=== PATIENT | male | born 1945 | race Caucasian/White ===

== ENCOUNTER 2023-03-31 09:10 | Inpatient (IN) | payer OTHER, MEDICARE ==
[~2023-03-31] VITALS: Ht 172.7 cm; Wt 75.0 kg
[2023-03-31] MEDS ORDERED: ondansetron/PF 4mg/2ml inj IV ONE (11:45)
[2023-03-31] MEDS ORDERED: normal saline 1000ML IV soln IVB ONE ×2 (11:45→14:25)
[2023-03-31 12:01] LABS: BILIRUBIN,URINE NEGATIVE (Neg); CLARITY,URINE CLEAR (Clear); COLOR,URINE YELLOW (Yellow); GLUCOSE, URINE >=1000 mg/dl (Neg); KETONES,URINE >=80 mg/dl (Neg); LEUKOCYTE ESTERASE ,URINE NEGATIVE (Neg); NITRITES, URINE NEGATIVE (Neg); OCCULT BLOOD,URINE NEGATIVE (Neg); PH,URINE 5.5 (4.8-8.0); PROTEIN,URINE NEGATIVE (Neg); UROBILINOGEN,URINE 0.2 E.U/dL (0.2-1.0)
[2023-03-31 12:14] LABS: UA COLLECTION TYPE CLN CATCH MIDSTREAM
[2023-03-31 12:15] LABS: BACTERIA,URINE FEW /HPF (Neg); MUCUS STRANDS NONE SEEN /LPF (Neg); RBC,URINE 0-2 /HPF (0-2); SQUAMOUS EPITHELIAL CELL,UR FEW /LPF (FEW); WBC,URINE 0-4 /HPF (0-4)
[2023-03-31 13:11] LABS: BASOPHILS % (AUTO) 0.1 % (0-1); EOSINOPHILS % (AUTO) 0 % (0-6); HEMATOCRIT 42.9 % (42.0-52.0); HEMOGLOBIN 14.4 g/dl (14.0-17.9); LYMPHOCYTES % (AUTO) 5.8 % (21-51); MEAN CORPUSCULAR HEMOGLOBIN 31.6 PG (27.0-31.0); MEAN CORPUSCULAR HGB CONC 33.6 g/dL (33.0-36.5); MEAN CORPUSCULAR VOLUME 93.9 FL (78-98); MEAN PLATELET VOLUME 8.8 FL (7.4-10.4); MONOCYTES % (AUTO) 5.5 % (2-12); NEUTROPHILS # (AUTO) 15.6 X10'3 (1.8-7.7); NEUTROPHILS % (AUTO) 88.6 % (42-75); PLATELET COUNT 232 X10'3 (140-440); RED BLOOD COUNT 4.57 X10'6 (4.70-6.10); RED CELL DISTRIBUTION WIDTH 13.3 % (11.5-14.5); WHITE BLOOD COUNT 17.6 X10'3 (4.5-11.0)
[2023-03-31 13:39] LABS: ALANINE AMINOTRANSFERASE 44 U/L (12-78); ALBUMIN 4.5 G/DL (3.4-5.0); ALBUMIN/GLOBULIN RATIO 1.3 (1.1-1.5); ALKALINE PHOSPHATASE 110 IU/L (46-116); ANION GAP 19 (8-16); ASPARTATE AMINO TRANSFERASE 44 U/L (10-37); BILIRUBIN,TOTAL 1.2 MG/DL (0.1-1.0); BLOOD UREA NITROGEN 28 MG/DL (7-18); BUN/CREATININE RATIO 18.7 (10.0-20.0); CALCIUM 10.5 MG/DL (8.5-10.1); CHLORIDE 99 MMOL/L (99-107); GLUCOSE 146 MG/DL (70-104); POTASSIUM 4.2 MMOL/L (3.5-5.1); SODIUM 139 MMOL/L (135-145); TOTAL CARBON DIOXIDE 20.9 MMOL/L (24-32); TOTAL PROTEIN 8.1 G/DL (6.4-8.2); eCRCL 40 ML/MIN; eGFR 45 ML/MIN
[2023-03-31 13:45] LABS: C-REACTIVE PROTEIN 0.08 MG/DL (0.0-0.5); MAGNESIUM 2.1 MG/DL (1.5-2.4)
[2023-03-31] MEDS ORDERED: METF-900 PO (15:08)
[2023-03-31] MEDS ORDERED: SEMA1PEN3 SQ (15:08)
[2023-03-31] MEDS ORDERED: ATOR80TA PO (15:08)
[2023-03-31] MEDS ORDERED: LOSA25TA41 PO (15:08)
[2023-03-31] MEDS ORDERED: METO50TA17 PO (15:08)
[2023-03-31] MEDS ORDERED: CLOP-32 PO (15:08)
[2023-03-31] MEDS ORDERED: acetaminophen 325mg tablet PO PRN (16:05)
[2023-03-31] MEDS ORDERED: magnesium 4gm in 100ml NS 100 ML IV PRN (16:05)
[2023-03-31] MEDS ORDERED: HYDROcodone/acetaminophen 5mg/325mg tablet PO PRN (16:05)
[2023-03-31] MEDS ORDERED: potassium Cl 40MEQ/1/2NS 520ml 520 ML IV PRN (16:05)
[2023-03-31] MEDS ORDERED: HYDROcodone/acetaminophen 10/325mg tab PO PRN (16:05)
[2023-03-31] MEDS ORDERED: potassium Cl 20 mEq SR tablet PO PRN ×2 (16:05)
[2023-03-31] MEDS ORDERED: morphine 2 MG/ML inj. syringe IV PRN (16:05)
[2023-03-31] MEDS ORDERED: CefTRIAXone 2gm/D5W 50ml BAG 50 ML IV ONE (16:05)
[2023-03-31] MEDS ORDERED: magnesium Cl slow-release 64mg tablet PO PRN (16:05)
[2023-03-31] MEDS ORDERED: magnesium 2GM in 50ml NS 50 ML IV PRN (16:05)
[2023-03-31] MEDS ORDERED: DEXTROSE 15 GM of carb/4 tabs (each vial/BOTTLE has 4 tablets) PO PRN ×2 (16:25)
[2023-03-31] MEDS ORDERED: glucagon, human recombinant 1mg kit SUBCUT PRN (16:25)
[2023-03-31] MEDS ORDERED: insulin Lispro (HumaLOG) vial - multi-dose SQ SCH (16:25)
[2023-03-31] MEDS ORDERED: dextrose 50%-water 50ml dispensing syringe IV PRN ×2 (16:25)
[2023-03-31] MEDS ORDERED: MESSAGE TO PHARMACY PO ONE (16:25)
[2023-03-31 16:59] LABS: BASOPHILS % (AUTO) 0.1 % (0-1); EOSINOPHILS % (AUTO) 0 % (0-6); HEMATOCRIT 42.2 % (42.0-52.0); HEMOGLOBIN 14.1 g/dl (14.0-17.9); LYMPHOCYTES # (AUTO) 1.2 X10'3 (1.1-4.8); LYMPHOCYTES % (AUTO) 6.8 % (21-51); MEAN CORPUSCULAR HEMOGLOBIN 31.6 PG (27.0-31.0); MEAN CORPUSCULAR HGB CONC 33.4 g/dL (33.0-36.5); MEAN CORPUSCULAR VOLUME 94.6 FL (78-98); MEAN PLATELET VOLUME 8.6 FL (7.4-10.4); MONOCYTES # (AUTO) 0.7 X10'3 (0-0.9); MONOCYTES % (AUTO) 3.8 % (2-12); NEUTROPHILS # (AUTO) 15.9 X10'3 (1.8-7.7); NEUTROPHILS % (AUTO) 89.3 % (42-75); PLATELET COUNT 226 X10'3 (140-440); RED BLOOD COUNT 4.46 X10'6 (4.70-6.10); RED CELL DISTRIBUTION WIDTH 14.1 % (11.5-14.5); WHITE BLOOD COUNT 17.7 X10'3 (4.5-11.0)
[2023-03-31] MEDS: ondansetron/PF 4mg/2ml inj IV PRN (17:58)
[2023-03-31] MEDS: metoprolol tartrate 50mg tablet PO SCH (19:11)
[2023-03-31] MEDS: heparin, porcine 5000 units/ml vial SQ SCH (19:14)
[2023-03-31] MEDS: normal saline 1000ml 1,000 ML IV SCH (19:17)
[2023-03-31 19:47] LABS: HEMOGLOBIN A1C 6.3 % (4.5-6.2)
[2023-03-31] MEDS: metroNIDAZOLE-Flagyl 500mg/NS 100 ML IV SCH (20:28)
[2023-03-31] MEDS ORDERED: insulin glargine (Lantus) pen - multi-dose SQ SCH (21:00)
--- NOTE | 2023-03-31 21:00 | NUR ---
Patient in room ORTHO 4009. I have received report from ALHAJI Davila and had the opportunity to ask questions and assume patient care.
[2023-03-31 22:00] VITALS: RESP 17; O2SAT 96
[2023-03-31] MEDS: metoclopramide 5 mg/ml inj IV PRN (23:27)
[2023-03-31 23:45] VITALS: BP 150/68; PULSE 109; RESP 16; TEMP 98.9; O2SAT 100
[2023-04-01] MEDS: normal saline 1000ml 1,000 ML IV SCH ×2 (03:35→06:58)
--- NOTE | 2023-04-01 06:39 | NUR ---
Problems reprioritized. Patient report given, questions answered & plan of care reviewed with ALHAJI Paredes.
--- NOTE | 2023-04-01 06:42 | NUR ---
Patient in room ORTHO 4009. I have received report from SHANTI MANE and had the opportunity to ask questions and assume patient care.
[2023-04-01 06:50] VITALS: BP 139/55; PULSE 90; RESP 16; TEMP 97.8; O2SAT 100
[2023-04-01] MEDS: ondansetron/PF 4mg/2ml inj IV PRN ×3 (07:05→20:14)
[2023-04-01] MEDS: heparin, porcine 5000 units/ml vial SQ SCH ×2 (07:34→20:11)
[2023-04-01] MEDS: clopidogrel 75mg tablet PO SCH (07:35)
[2023-04-01] MEDS: losartan 25mg tablet PO SCH (07:35)
[2023-04-01] MEDS: metoprolol tartrate 50mg tablet PO SCH ×2 (07:36→20:11)
[2023-04-01] MEDS: metroNIDAZOLE-Flagyl 500mg/NS 100 ML IV SCH ×2 (07:36→20:10)
[2023-04-01] MEDS: atorvastatin 20mg tablet PO SCH (07:36)
[2023-04-01 08:34] LABS: BASOPHILS % (AUTO) 0.1 % (0-1); EOSINOPHILS % (AUTO) 0 % (0-6); HEMATOCRIT 36.5 % (42.0-52.0); HEMOGLOBIN 12.2 g/dl (14.0-17.9); LYMPHOCYTES # (AUTO) 0.9 X10'3 (1.1-4.8); LYMPHOCYTES % (AUTO) 8.3 % (21-51); MEAN CORPUSCULAR HGB CONC 33.5 g/dL (33.0-36.5); MEAN CORPUSCULAR VOLUME 95.5 FL (78-98); MEAN PLATELET VOLUME 8.3 FL (7.4-10.4); MONOCYTES # (AUTO) 0.5 X10'3 (0-0.9); MONOCYTES % (AUTO) 4.8 % (2-12); NEUTROPHILS # (AUTO) 9.6 X10'3 (1.8-7.7); NEUTROPHILS % (AUTO) 86.8 % (42-75); PLATELET COUNT 196 X10'3 (140-440); RED BLOOD COUNT 3.82 X10'6 (4.70-6.10); RED CELL DISTRIBUTION WIDTH 14.1 % (11.5-14.5)
[2023-04-01 09:05] LABS: ALANINE AMINOTRANSFERASE 31 U/L (12-78); ALBUMIN 3.6 G/DL (3.4-5.0); ALBUMIN/GLOBULIN RATIO 1.1 (1.1-1.5); ALKALINE PHOSPHATASE 87 IU/L (46-116); ANION GAP 24 (8-16); ASPARTATE AMINO TRANSFERASE 31 U/L (10-37); BILIRUBIN,TOTAL 0.7 MG/DL (0.1-1.0); BLOOD UREA NITROGEN 24 MG/DL (7-18); BUN/CREATININE RATIO 15.7 (10.0-20.0); CALCIUM 8.9 MG/DL (8.5-10.1); CHLORIDE 106 MMOL/L (99-107); CREATININE 1.53 MG/DL (0.60-1.10); GLUCOSE 166 MG/DL (70-104); POTASSIUM 3.8 MMOL/L (3.5-5.1); SODIUM 144 MMOL/L (135-145); TOTAL PROTEIN 6.8 G/DL (6.4-8.2); eCRCL 39 ML/MIN; eGFR 44 ML/MIN
[2023-04-01 09:09] LABS: TOTAL CARBON DIOXIDE 14.1 MMOL/L (24-32)
--- NOTE | 2023-04-01 09:22 | NUR ---
PAGER ID: [phone] MESSAGE: Carlos Manuel Manzo# [id number]- Critical called - Co2 14.1 (20.9) Thank you. Tonja MANE for Andrew MANE
[2023-04-01 10:00] VITALS: BP 144/60; PULSE 89; RESP 16; TEMP 97.3; O2SAT 100
--- NOTE | 2023-04-01 12:10 | NUR ---
Malnutrition consult: Per RN malnutrition screen pt reports 24-33 pound wt loss without trying and decreased in PO intake/appetite. Pt seen at bedside this morning states he's been losing a lot of weight related to Ozempic medication for diabetes. Pt states weight loss is intentional and desirable since he is able to eat "whatever he wants" while taking medication. Pt appeared physically well nourished with no signs of muscle or fat wasting at this time. Additionally pt does not have edema but presents with mild weakness which is anticipated given age. Pt does not meet a minimum of two malnutrition criteria at this time. Will continue to monitor. Addendum: 04/01/23 at [address] Amended: Links added.
[2023-04-01 12:24] VITALS: RESP 18; O2SAT 100
[2023-04-01] MEDS: sodium bicarbonate (8.4%) inj. 50 MEQ in dextrose 5%-water 1,000 ML IV SCH (13:02)
[2023-04-01] MEDS: morphine 2 MG/ML inj. syringe IV PRN ×2 (15:06→22:16)
[2023-04-01] MEDS: metoclopramide 5 mg/ml inj IV PRN (17:59)
[2023-04-01 18:00] VITALS: BP 144/69; PULSE 86; RESP 16; TEMP 98.5; O2SAT 100
--- NOTE | 2023-04-01 18:05 | NUR ---
PAGER ID: [phone] MESSAGE: ALHAJI WALKER, ORTHO, [id number]. RE: [id number]. [facility] IN [place] STATED PT. INFO CAN ONLY BE BY TELEPHONE AND EMAIL. TO GET INFO WE NEED MD TO PASS OUR MEDICAL RECORDS TO GET THERE MEDICAL RECORDS.
--- NOTE | 2023-04-01 18:34 | NUR ---
Problems reprioritized. Patient report given TO SHANTI MANE, questions answered & plan of care reviewed with .
--- NOTE | 2023-04-01 18:38 | NUR ---
Patient in room ORTHO 4009. I have received report from ALHAJI Paredes and had the opportunity to ask questions and assume patient care.
[2023-04-01 20:00] VITALS: RESP 14; O2SAT 99
[2023-04-01 22:00] VITALS: BP 139/53; PULSE 97; RESP 14; TEMP 99; O2SAT 99
[2023-04-02] MEDS: metoclopramide 5 mg/ml inj IV PRN ×2 (00:18→13:13)
[2023-04-02] MEDS: sodium bicarbonate (8.4%) inj. 50 MEQ in dextrose 5%-water 1,000 ML IV SCH ×2 (00:18→08:05)
[2023-04-02] MEDS: ondansetron/PF 4mg/2ml inj IV PRN ×2 (04:31→18:13)
[2023-04-02] MEDS: morphine 2 MG/ML inj. syringe IV PRN ×3 (04:31→17:07)
--- NOTE | 2023-04-02 06:06 | NUR ---
Problems reprioritized. Patient report given, questions answered & plan of care reviewed with ALHAJI Paredes.
--- NOTE | 2023-04-02 06:17 | NUR ---
Patient in room ORTHO 4009. I have received report from SHANTI MANE and had the opportunity to ask questions and assume patient care.
[2023-04-02 06:33] VITALS: BP 110/59; PULSE 64; RESP 16; TEMP 98.7; O2SAT 99
[2023-04-02] MEDS: heparin, porcine 5000 units/ml vial SQ SCH ×2 (07:13→20:01)
[2023-04-02] MEDS: clopidogrel 75mg tablet PO SCH (07:13)
[2023-04-02] MEDS: atorvastatin 20mg tablet PO SCH (07:13)
[2023-04-02] MEDS: losartan 25mg tablet PO SCH (07:14)
[2023-04-02] MEDS: metoprolol tartrate 50mg tablet PO SCH ×2 (07:14→20:03)
[2023-04-02] MEDS: metroNIDAZOLE-Flagyl 500mg/NS 100 ML IV SCH ×2 (07:15→20:01)
[2023-04-02 07:44] LABS: BASOPHILS # (AUTO) 0.1 X10'3 (0-0.2); BASOPHILS % (AUTO) 0.3 % (0-1); EOSINOPHILS % (AUTO) 0.1 % (0-6); HEMATOCRIT 38.5 % (42.0-52.0); HEMOGLOBIN 13.1 g/dl (14.0-17.9); LYMPHOCYTES # (AUTO) 1.4 X10'3 (1.1-4.8); LYMPHOCYTES % (AUTO) 7.4 % (21-51); MEAN CORPUSCULAR HEMOGLOBIN 31.4 PG (27.0-31.0); MEAN CORPUSCULAR HGB CONC 34.1 g/dL (33.0-36.5); MEAN PLATELET VOLUME 8.2 FL (7.4-10.4); MONOCYTES # (AUTO) 1.6 X10'3 (0-0.9); MONOCYTES % (AUTO) 8.7 % (2-12); NEUTROPHILS # (AUTO) 15.7 X10'3 (1.8-7.7); NEUTROPHILS % (AUTO) 83.5 % (42-75); PLATELET COUNT 213 X10'3 (140-440); RED BLOOD COUNT 4.18 X10'6 (4.70-6.10); RED CELL DISTRIBUTION WIDTH 13.7 % (11.5-14.5); WHITE BLOOD COUNT 18.8 X10'3 (4.5-11.0)
[2023-04-02 08:09] LABS: GLUCOSE 271 MG/DL (70-104)
[2023-04-02 08:10] LABS: ALANINE AMINOTRANSFERASE 28 U/L (12-78); ALBUMIN 3.3 G/DL (3.4-5.0); ALBUMIN/GLOBULIN RATIO 1.1 (1.1-1.5); ALKALINE PHOSPHATASE 84 IU/L (46-116); ANION GAP 16 (8-16); ASPARTATE AMINO TRANSFERASE 29 U/L (10-37); BILIRUBIN,TOTAL 0.8 MG/DL (0.1-1.0); BLOOD UREA NITROGEN 24 MG/DL (7-18); BUN/CREATININE RATIO 16.4 (10.0-20.0); CALCIUM 8.6 MG/DL (8.5-10.1); CHLORIDE 104 MMOL/L (99-107); CREATININE 1.46 MG/DL (0.60-1.10); SODIUM 137 MMOL/L (135-145); TOTAL CARBON DIOXIDE 17.4 MMOL/L (24-32); TOTAL PROTEIN 6.4 G/DL (6.4-8.2); eCRCL 41 ML/MIN; eGFR 47 ML/MIN
[2023-04-02 08:15] LABS: POTASSIUM 2.8 MMOL/L (3.5-5.1)
--- NOTE | 2023-04-02 08:17 | NUR ---
PAGER ID: [phone] MESSAGE: ALHAJI WALKER, ORTHO, [id number]. RE: [id number]. CRITICAL LAB. K+ 2.8
[2023-04-02] MEDS ORDERED: Potassium Cl inj 20 MEQ in normal saline 1000ml 990 ML IV SCH (08:25)
[2023-04-02 09:24] LABS: C-REACTIVE PROTEIN 1.69 MG/DL (0.0-0.5)
[2023-04-02 09:27] LABS: LIPASE 60 U/L (16-77)
[2023-04-02 09:46] VITALS: RESP 16; O2SAT 99
[2023-04-02 10:00] VITALS: BP 123/55; PULSE 67; RESP 16; TEMP 98.7; O2SAT 98
--- NOTE | 2023-04-02 10:22 | NUR ---
JACINTA PICC LINE NURSE WILL PUT IN IV PLACEMENT, PT. MEDICATION POTASSIUM AND ANTIBIOTIC WILL BE ADMINISTERED ONCE IV PLACEMENT IS DONE.
[2023-04-02] MEDS: ciprofloxacin lact 400MG/200ML 200 ML IV SCH ×2 (10:45→21:05)
[2023-04-02] MEDS ORDERED: iohexol 300mg/ml 100ml inj. ONE (12:20)
[2023-04-02] MEDS ORDERED: pantoprazole 40mg IV 80 MG in normal saline 100ml IV soln 100 ML IV ONE (13:40)
[2023-04-02 14:46] LABS: BASOPHILS % (AUTO) 0 % (0-1); EOSINOPHILS % (AUTO) 0 % (0-6); LYMPHOCYTES # (AUTO) 0.8 X10'3 (1.1-4.8); LYMPHOCYTES % (AUTO) 4.9 % (21-51); MEAN CORPUSCULAR HEMOGLOBIN 31.5 PG (27.0-31.0); MEAN CORPUSCULAR HGB CONC 34.1 g/dL (33.0-36.5); MEAN CORPUSCULAR VOLUME 92.3 FL (78-98); MEAN PLATELET VOLUME 7.9 FL (7.4-10.4); MONOCYTES # (AUTO) 1.3 X10'3 (0-0.9); MONOCYTES % (AUTO) 8.1 % (2-12); NEUTROPHILS # (AUTO) 13.6 X10'3 (1.8-7.7); PLATELET COUNT 175 X10'3 (140-440); RED CELL DISTRIBUTION WIDTH 13.5 % (11.5-14.5); WHITE BLOOD COUNT 15.7 X10'3 (4.5-11.0)
--- NOTE | 2023-04-02 14:56 | NUR ---
PAGER ID: [phone] MESSAGE: ALHAJI WALKER, ORTHO, 0331. RE: [id number]. PT. CRITICAL LAB K+ 8.0. I STOPPED THE POTASSIUM IV. FYI
[2023-04-02] MEDS ORDERED: insulin regular, human 10 units/0.1 ml syringe SQ ONE (15:05)
[2023-04-02] MEDS ORDERED: albuterol 2.5 MG/3 ML nebule NEB ONE (15:05)
[2023-04-02] MEDS ORDERED: dextrose 50%-water 50ml dispensing syringe IV ONE (15:05)
[2023-04-02] MEDS ORDERED: calcium gluconate inj. 1 GM in normal saline 100ml IV soln 100 ML IV ONE (15:05)
[2023-04-02] MEDS ORDERED: calcium gluconate inj. 1 GM in NS 100ml IV soln (110 ML) IV ONE (15:10)
[2023-04-02] MEDS ORDERED: calcium gluconate inj. 1 GM in normal saline 50ml IV soln 40 ML IV ONE (15:40)
[2023-04-02 18:00] VITALS: BP 141/66; PULSE 71; RESP 18; TEMP 98.2; O2SAT 99
--- NOTE | 2023-04-02 18:17 | NUR ---
PAGER ID: [phone] MESSAGE: ALHAJI WALKER, ORTHO, 7467. RE: [id number]. PT. IS REQUESTING TEMAZEPAM FOR SLEEP.
--- NOTE | 2023-04-02 18:44 | NUR ---
Problems reprioritized. Patient report given to september rn, questions answered & plan of care reviewed with .
[2023-04-02] MEDS ORDERED: temazepam 15mg capsule PO PRN (20:50)
[2023-04-02 22:00] VITALS: BP 129/67; PULSE 77; RESP 16; TEMP 98.8; O2SAT 99
[2023-04-03] MEDS: morphine 2 MG/ML inj. syringe IV PRN (00:09)
[2023-04-03 06:00] VITALS: BP 149/64; PULSE 78; RESP 16; TEMP 98.3; O2SAT 99
[2023-04-03 06:14] LABS: BASOPHILS % (AUTO) 0.2 % (0-1); EOSINOPHILS % (AUTO) 0 % (0-6); HEMATOCRIT 39.3 % (42.0-52.0); LYMPHOCYTES % (AUTO) 6.8 % (21-51); MEAN CORPUSCULAR HEMOGLOBIN 31.8 PG (27.0-31.0); MEAN CORPUSCULAR HGB CONC 33.2 g/dL (33.0-36.5); MEAN CORPUSCULAR VOLUME 95.7 FL (78-98); MEAN PLATELET VOLUME 8.1 FL (7.4-10.4); MONOCYTES # (AUTO) 1.5 X10'3 (0-0.9); MONOCYTES % (AUTO) 10.1 % (2-12); NEUTROPHILS # (AUTO) 12.4 X10'3 (1.8-7.7); NEUTROPHILS % (AUTO) 82.9 % (42-75); PLATELET COUNT 146 X10'3 (140-440); RED BLOOD COUNT 4.11 X10'6 (4.70-6.10)
[2023-04-03 06:34] LABS: ALANINE AMINOTRANSFERASE 27 U/L (12-78); ALBUMIN 2.8 G/DL (3.4-5.0); ALKALINE PHOSPHATASE 79 IU/L (46-116); ANION GAP 11 (8-16); ASPARTATE AMINO TRANSFERASE 24 U/L (10-37); BILIRUBIN,TOTAL 0.7 MG/DL (0.1-1.0); BLOOD UREA NITROGEN 17 MG/DL (7-18); BUN/CREATININE RATIO 14.2 (10.0-20.0); CALCIUM 8.3 MG/DL (8.5-10.1); CHLORIDE 107 MMOL/L (99-107); GLUCOSE 157 MG/DL (70-104); POTASSIUM 4.1 MMOL/L (3.5-5.1); SODIUM 137 MMOL/L (135-145); TOTAL CARBON DIOXIDE 18.9 MMOL/L (24-32); TOTAL PROTEIN 5.7 G/DL (6.4-8.2); eCRCL 50 ML/MIN; eGFR 59 ML/MIN
[2023-04-03] MEDS ORDERED: pantoprazole 40mg Tablet.DR PO SCH (07:30)
[2023-04-03] MEDS: metroNIDAZOLE-Flagyl 500mg/NS 100 ML IV SCH (08:00)
[2023-04-03] MEDS ORDERED: atorvastatin 20mg tablet PO SCH (08:00)
[2023-04-03] MEDS: clopidogrel 75mg tablet PO SCH (08:28)
[2023-04-03] MEDS: metoprolol tartrate 50mg tablet PO SCH (08:29)
[2023-04-03] MEDS: losartan 25mg tablet PO SCH (08:29)
[2023-04-03] MEDS: ondansetron/PF 4mg/2ml inj IV PRN (08:31)
[2023-04-03] MEDS: heparin, porcine 5000 units/ml vial SQ SCH (08:31)
[2023-04-03] MEDS: ciprofloxacin lact 400MG/200ML 200 ML IV SCH (08:32)
[2023-04-03 10:00] VITALS: BP 136/52; PULSE 77; RESP 15; TEMP 98.3; O2SAT 98
[2023-04-03] MEDS ORDERED: METR-159 PO (11:18)
[2023-04-03] MEDS ORDERED: PANT40TA54 PO (11:18)
[2023-04-03] MEDS ORDERED: CIPR-259 PO (11:18)
[2023-04-03] MEDS ORDERED: ONDA8TAB13 PO (11:23)
[2023-04-03] MEDS ORDERED: ACET-1008 PO (11:23)
--- NOTE | 2023-04-03 14:45 | NUR ---
DISCHARGE NOTE: REVIEWED DISCHARGE PAPERWORK WITH PT. ROSY DC'D. PT AWARE TO P/U NEW MEDS AT PREFERRED PHARMACY. REVIEWED NEW MEDICATIONS AND POSSIBLE ASE. PT. HAD THE OPPORTUNITY TO ASK QUESTIONS. ESCORTED DOWNSTAIRS TO ADMITTING TO [facility]. CALLED A [facility] TO PICK HIM UP.
== END 2023-04-03 15:05 | disposition home or self-care (01) | DRG 391 ==
LOC: ER 09:12 → ED HOLD 16:17 → ORTHO 4S 21:41
PROVIDERS: ADMIT Internal Medicine; ATTEND Internal Medicine
DX: K29.80 Duodenitis without bleeding (principal); N17.0 Acute kidney failure with tubular necrosis; E11.9 Type 2 diabetes mellitus without complications; Z20.822 Contact with and (suspected) exposure to COVID-19; E86.0 Dehydration; I25.10 Atherosclerotic heart disease of native coronary artery without angina pectoris; Z79.84 Long term (current) use of oral hypoglycemic drugs; Z79.899 Other long term (current) drug therapy
CPT/HCPCS: 36415; 71045; 74176; 74177; 80053; 81001; 82948; 83036; 83605; 83690; 83735; 84132; 84145; 84484; 85025; 85651; 86140; 87040; 87081; 87502; 87503; 87811; 93005; 97161; 99285; C9113; G0378; J0696; J0744; J1644; J1815; J2270; J2405; J2765; J3480; J3490; J7030; J7070; Q9967